=== PATIENT | male | born 1935 | race Caucasian/White ===

== ENCOUNTER 2017-12-16 06:17 | Outpatient (CLI) | payer OTHER | END 2017-12-16 06:22 | disposition home or self-care (01) | LOC: LAB 06:17 | DX: E11.65 Type 2 diabetes mellitus with hyperglycemia (principal); E78.2 Mixed hyperlipidemia; D64.89 Other specified anemias; D68.8 Other specified coagulation defects ==

== ENCOUNTER 2018-01-17 07:06 | Outpatient (CLI) | payer OTHER | END 2018-01-17 07:24 | disposition home or self-care (01) | LOC: SONOGRAMA 07:06 | DX: N40.0 Benign prostatic hyperplasia without lower urinary tract symptoms (principal) ==

== ENCOUNTER 2018-03-15 07:14 | Outpatient (CLI) | payer OTHER | END 2018-03-15 07:24 | disposition home or self-care (01) | LOC: RAD 07:14 | DX: Z85.21 Personal history of malignant neoplasm of larynx (principal) ==

== ENCOUNTER 2018-03-30 06:11 | Outpatient (CLI) | payer OTHER | END 2018-03-30 06:18 | disposition home or self-care (01) | LOC: LAB 06:11 | DX: Z12.11 Encounter for screening for malignant neoplasm of colon (principal); E11.65 Type 2 diabetes mellitus with hyperglycemia; E78.2 Mixed hyperlipidemia; E03.8 Other specified hypothyroidism ==

== ENCOUNTER → 2018-04-03 06:17 | Outpatient (CLI) | payer OTHER | END | disposition home or self-care (01) | LOC: LAB 06:17 | DX: Z12.11 Encounter for screening for malignant neoplasm of colon (principal); E11.65 Type 2 diabetes mellitus with hyperglycemia; E78.2 Mixed hyperlipidemia; E03.8 Other specified hypothyroidism ==

== ENCOUNTER 2018-06-15 06:13 | Outpatient (CLI) | payer OTHER | END 2018-06-15 06:22 | disposition home or self-care (01) | LOC: LAB 06:13 | DX: D68.8 Other specified coagulation defects (principal); E11.65 Type 2 diabetes mellitus with hyperglycemia; E78.2 Mixed hyperlipidemia; N39.0 Urinary tract infection, site not specified ==

== ENCOUNTER 2018-12-05 06:43 | Outpatient (CLI) | payer OTHER | END 2018-12-05 06:57 | disposition home or self-care (01) | LOC: LAB 06:43 | DX: I10 Essential (primary) hypertension (principal); E11.9 Type 2 diabetes mellitus without complications; E03.8 Other specified hypothyroidism; E78.2 Mixed hyperlipidemia; K92.1 Melena; D64.0 Hereditary sideroblastic anemia; N40.0 Benign prostatic hyperplasia without lower urinary tract symptoms ==

== ENCOUNTER 2019-04-03 07:20 | Outpatient (CLI) | payer OTHER | END 2019-04-03 07:23 | disposition home or self-care (01) | LOC: RAD 07:20 | DX: C32.9 Malignant neoplasm of larynx, unspecified (principal); Z85.21 Personal history of malignant neoplasm of larynx ==

== ENCOUNTER 2019-04-10 06:28 | Outpatient (CLI) | payer OTHER | END 2019-04-10 06:34 | disposition home or self-care (01) | LOC: LAB 06:28 | DX: E03.8 Other specified hypothyroidism (principal); E78.2 Mixed hyperlipidemia; E11.9 Type 2 diabetes mellitus without complications; I10 Essential (primary) hypertension ==

== ENCOUNTER 2019-06-07 09:05 | Outpatient (CLI) | payer OTHER | END 2019-06-07 09:13 | disposition home or self-care (01) | LOC: LAB 09:05 | DX: R07.89 Other chest pain (principal) ==

== ENCOUNTER → 2019-06-20 06:17 | Outpatient (CLI) | payer OTHER | END | disposition home or self-care (01) | LOC: LAB 06:17 | DX: N40.0 Benign prostatic hyperplasia without lower urinary tract symptoms (principal) ==

== ENCOUNTER 2019-07-31 06:09 | Outpatient (CLI) | payer OTHER | END 2019-07-31 15:42 | disposition home or self-care (01) | LOC: LAB 06:09 | DX: I10 Essential (primary) hypertension (principal); E11.9 Type 2 diabetes mellitus without complications; E03.8 Other specified hypothyroidism; E78.2 Mixed hyperlipidemia ==

== ENCOUNTER 2019-12-13 06:17 | Outpatient (CLI) | payer OTHER | END 2019-12-13 06:23 | disposition home or self-care (01) | LOC: LAB 06:17 | DX: E11.9 Type 2 diabetes mellitus without complications (principal); E03.8 Other specified hypothyroidism; E78.2 Mixed hyperlipidemia; N40.0 Benign prostatic hyperplasia without lower urinary tract symptoms; Z12.11 Encounter for screening for malignant neoplasm of colon; I10 Essential (primary) hypertension ==

== ENCOUNTER → 2020-05-16 07:18 | Outpatient (CLI) | payer OTHER | END | disposition home or self-care (01) | LOC: LAB 07:18 | PROVIDERS: ATTEND Internal Medicine Cardiovascular Disease | DX: E11.9 Type 2 diabetes mellitus without complications (principal); I10 Essential (primary) hypertension; E03.8 Other specified hypothyroidism; E78.2 Mixed hyperlipidemia ==

== ENCOUNTER 2020-06-24 06:21 | Outpatient (CLI) | payer OTHER | END 2020-06-24 06:35 | disposition home or self-care (01) | LOC: LAB 06:21 | PROVIDERS: ATTEND Urology | DX: N40.0 Benign prostatic hyperplasia without lower urinary tract symptoms (principal) ==

== ENCOUNTER 2020-07-15 07:11 | Outpatient (CLI) | payer OTHER | END 2020-07-15 07:12 | disposition home or self-care (01) | LOC: RAD 07:11 | DX: I15.8 Other secondary hypertension (principal); I10 Essential (primary) hypertension ==

== ENCOUNTER 2020-08-21 06:47 | Outpatient (CLI) | payer OTHER | END 2020-08-21 06:54 | disposition home or self-care (01) | LOC: LAB 06:47 | PROVIDERS: ATTEND Internal Medicine Cardiovascular Disease | DX: I10 Essential (primary) hypertension (principal); E11.9 Type 2 diabetes mellitus without complications; E03.8 Other specified hypothyroidism; E78.2 Mixed hyperlipidemia ==

== ENCOUNTER → 2020-09-19 06:15 | Outpatient (CLI) | payer OTHER | END | disposition home or self-care (01) | LOC: LAB 06:15 → RAD 06:15 | PROVIDERS: ATTEND Internal Medicine Cardiovascular Disease | DX: M43.12 Spondylolisthesis, cervical region (principal); M12.88 Other specific arthropathies, not elsewhere classified, other specified site ==

== ENCOUNTER 2020-12-16 06:28 | Outpatient (CLI) | payer OTHER | END 2020-12-16 06:34 | disposition home or self-care (01) | LOC: LAB 06:28 | PROVIDERS: ATTEND Orthopaedic Surgery | DX: E56.1 Deficiency of vitamin K (principal); E21.2 Other hyperparathyroidism; E55.9 Vitamin D deficiency, unspecified; M85.88 Other specified disorders of bone density and structure, other site; E88.89 Other specified metabolic disorders; M81.8 Other osteoporosis without current pathological fracture ==

== ENCOUNTER 2020-12-25 08:02 | Outpatient (CLI) | payer OTHER | END 2020-12-25 08:20 | disposition home or self-care (01) | LOC: NUCLEAR 08:02 | PROVIDERS: ATTEND Orthopaedic Surgery | DX: M81.0 Age-related osteoporosis without current pathological fracture (principal) ==

== ENCOUNTER 2021-01-07 06:15 | Outpatient (CLI) | payer OTHER | END 2021-01-07 06:22 | disposition home or self-care (01) | LOC: LAB 06:15 | PROVIDERS: ATTEND Internal Medicine Cardiovascular Disease | DX: E78.2 Mixed hyperlipidemia (principal); Z12.11 Encounter for screening for malignant neoplasm of colon; N40.0 Benign prostatic hyperplasia without lower urinary tract symptoms; E03.8 Other specified hypothyroidism; E11.9 Type 2 diabetes mellitus without complications; I10 Essential (primary) hypertension; E56.1 Deficiency of vitamin K; E83.42 Hypomagnesemia ==

== ENCOUNTER 2021-06-03 06:08 | Outpatient (CLI) | payer OTHER | END 2021-06-03 06:51 | disposition home or self-care (01) | LOC: LAB 06:08 | PROVIDERS: ATTEND Internal Medicine Cardiovascular Disease | DX: I10 Essential (primary) hypertension (principal); E11.9 Type 2 diabetes mellitus without complications; E03.8 Other specified hypothyroidism; E78.2 Mixed hyperlipidemia ==

== ENCOUNTER 2021-07-09 08:00 | Outpatient (CLI) | payer OTHER | END 2021-07-09 08:30 | disposition home or self-care (01) | LOC: PPH VACUNA 08:00 | DX: Z23 Encounter for immunization (principal) ==

== ENCOUNTER → 2021-09-21 06:24 | Outpatient (CLI) | payer OTHER | END | disposition home or self-care (01) | LOC: LAB 06:24 | PROVIDERS: ATTEND Internal Medicine Cardiovascular Disease | DX: E03.8 Other specified hypothyroidism (principal); I10 Essential (primary) hypertension; E11.9 Type 2 diabetes mellitus without complications; E78.2 Mixed hyperlipidemia ==

== ENCOUNTER 2022-01-22 06:14 | Outpatient (CLI) | payer OTHER | END 2022-01-22 06:16 | disposition home or self-care (01) | LOC: LAB 06:14 | PROVIDERS: ATTEND Ophthalmology | DX: E11.39 Type 2 diabetes mellitus with other diabetic ophthalmic complication (principal); I15.8 Other secondary hypertension; D68.32 Hemorrhagic disorder due to extrinsic circulating anticoagulants; D69.9 Hemorrhagic condition, unspecified; I10 Essential (primary) hypertension ==

== ENCOUNTER 2022-01-26 08:24 | Outpatient (CLI) | payer OTHER | END 2022-01-26 09:37 | disposition home or self-care (01) | LOC: EKG 08:24 | PROVIDERS: ATTEND Internal Medicine Cardiovascular Disease | DX: I10 Essential (primary) hypertension (principal) ==

== ENCOUNTER 2022-02-25 08:00 | Outpatient (CLI) | payer OTHER | END 2022-02-25 08:30 | disposition home or self-care (01) | LOC: PPH VACUNA 08:00 | PROVIDERS: ATTEND Emergency Medicine Pediatric Emergency Medicine | DX: Z23 Encounter for immunization (principal) ==

== ENCOUNTER 2022-03-11 06:04 | Outpatient (CLI) | payer OTHER | END 2022-03-11 06:05 | disposition home or self-care (01) | LOC: LAB 06:04 | PROVIDERS: ATTEND Internal Medicine Cardiovascular Disease | DX: E03.9 Hypothyroidism, unspecified (principal); I10 Essential (primary) hypertension; E11.9 Type 2 diabetes mellitus without complications; E78.2 Mixed hyperlipidemia; Z12.11 Encounter for screening for malignant neoplasm of colon; E55.9 Vitamin D deficiency, unspecified; N40.0 Benign prostatic hyperplasia without lower urinary tract symptoms ==

== ENCOUNTER 2022-03-12 06:08 | Outpatient (CLI) | payer OTHER | END 2022-03-12 06:12 | disposition home or self-care (01) | LOC: LAB 06:08 | PROVIDERS: ATTEND Internal Medicine Cardiovascular Disease | DX: E03.9 Hypothyroidism, unspecified (principal); I11.9 Hypertensive heart disease without heart failure; E78.2 Mixed hyperlipidemia; Z12.11 Encounter for screening for malignant neoplasm of colon; E55.9 Vitamin D deficiency, unspecified; N40.0 Benign prostatic hyperplasia without lower urinary tract symptoms ==

== ENCOUNTER 2022-04-20 06:34 | Outpatient (CLI) | payer OTHER | END 2022-04-20 06:40 | disposition home or self-care (01) | LOC: LAB 06:34 | PROVIDERS: ATTEND Urology | DX: N40.1 Benign prostatic hyperplasia with lower urinary tract symptoms (principal) ==

== ENCOUNTER 2022-07-14 06:07 | Outpatient (CLI) | payer OTHER | END 2022-07-14 06:08 | disposition home or self-care (01) | LOC: LAB 06:07 | PROVIDERS: ATTEND Internal Medicine Cardiovascular Disease | DX: E11.9 Type 2 diabetes mellitus without complications (principal); E78.2 Mixed hyperlipidemia; I10 Essential (primary) hypertension ==

== ENCOUNTER 2022-12-13 06:40 | Outpatient (CLI) | payer OTHER | END 2022-12-13 06:58 | disposition home or self-care (01) | LOC: LAB 06:40 | PROVIDERS: ATTEND Internal Medicine Cardiovascular Disease | DX: I10 Essential (primary) hypertension (principal); E11.9 Type 2 diabetes mellitus without complications; E03.9 Hypothyroidism, unspecified; E78.2 Mixed hyperlipidemia; Z12.11 Encounter for screening for malignant neoplasm of colon; N40.0 Benign prostatic hyperplasia without lower urinary tract symptoms ==

== ENCOUNTER → 2022-12-16 06:14 | Outpatient (CLI) | payer OTHER | END | disposition home or self-care (01) | LOC: LAB 06:14 | PROVIDERS: ATTEND Internal Medicine Cardiovascular Disease | DX: Z12.11 Encounter for screening for malignant neoplasm of colon (principal) ==

== ENCOUNTER 2023-05-19 06:06 | Outpatient (CLI) | payer OTHER | END 2023-05-19 06:07 | disposition home or self-care (01) | LOC: LAB 06:06 | PROVIDERS: ATTEND Internal Medicine Cardiovascular Disease | DX: E11.9 Type 2 diabetes mellitus without complications (principal); E78.2 Mixed hyperlipidemia; I10 Essential (primary) hypertension ==

== ENCOUNTER → 2023-07-05 06:07 | Outpatient (CLI) | payer OTHER | END | disposition home or self-care (01) | LOC: LAB 06:07 | PROVIDERS: ATTEND Urology | DX: N40.1 Benign prostatic hyperplasia with lower urinary tract symptoms (principal) ==

== ENCOUNTER 2023-10-18 06:09 | Outpatient (CLI) | payer OTHER ==
[2023-10-18 07:28] LABS: PH,URINE 5.5 (5.0-8.0); URINE APPEARANCE Clear; URINE BILIRRUBIN Negative (NEGATIVE); URINE BLOOD Negative; URINE COLOR Yellow; URINE GLUCOSE Negative (NEGATIVE); URINE LEUKOCYTE Small; URINE NITRATE Negative; URINE PROTEIN Negative (NEGATIVE); URINE UROBILINOGEN 0.2 E.U./dl
[2023-10-18 07:32] LABS: URINE BACTERIA 17.6 uL (0.0-1933); URINE EPITHELIAL CELLS 4.1 uL (0.0-38.8); URINE WBC 106.9 uL (0.0-23.2)
[2023-10-18 07:38] LABS: URINE RBC 1.5 uL (0.0-20.8)
[2023-10-18 07:38] LABS: HEMATOCRIT 38.5 % (39.0-48.0); HEMOGLOBIN 13.1 g/dL (13-16.00); MEAN CELL VOLUME 92.3 fL (80.0-100.00); MEAN CORPUSCULAR HEMOGLOBIN 31.4 pg (27.00-32.0); PLATELET COUNT 295 K/uL (150-450); RED BLOOD COUNT 4.17 M/uL (4.00-6.00); RED CELL DISTRIBUTION WIDTH 14.7 % (11.5-14.5)
[2023-10-18 08:20] LABS: CALCIUM 9.2 mg/dL (8.5-10.1); CHOL HDL RATIO 2.3 (0-5.0); CREATININE SERUM 0.96 mg/dL (0.70-1.30); GFR 73.75; POTASSIUM 3.84 mEq/L (3.5-5.1)
== END 2023-10-18 06:16 | disposition home or self-care (01) ==
LOC: LAB 06:09
PROVIDERS: ATTEND Internal Medicine Cardiovascular Disease
DX: E11.9 Type 2 diabetes mellitus without complications (principal); E78.2 Mixed hyperlipidemia

== ENCOUNTER 2024-03-05 06:09 | Outpatient (CLI) | payer OTHER ==
[2024-03-05 07:58] LABS: CALCIUM 9.5 mg/dL (8.5-10.1); CREATININE SERUM 0.85 mg/dL (0.70-1.30); GFR 84.87; POTASSIUM 4.24 mEq/L (3.5-5.1)
== END 2024-03-05 06:10 | disposition home or self-care (01) ==
LOC: LAB 06:09
PROVIDERS: ATTEND Surgery Surgical Oncology
DX: C32.9 Malignant neoplasm of larynx, unspecified (principal)

== ENCOUNTER → 2024-06-13 06:06 | Outpatient (CLI) | payer OTHER ==
[2024-06-13 06:56] LABS: HEMATOCRIT 39.4 % (39.0-48.0); HEMOGLOBIN 13.7 g/dL (13-16.00); MEAN CELL VOLUME 91.7 fL (80.0-100.00); MEAN CORPUSCULAR HGB CONC 34.8 g/dl (32.0-36.0); PLATELET COUNT 275 K/uL (150-450); RED CELL DISTRIBUTION WIDTH 14.6 % (11.5-14.5)
[2024-06-13 07:04] LABS: PH,URINE 6.5 (5.0-8.0); URINE APPEARANCE Clear; URINE BILIRRUBIN Negative (NEGATIVE); URINE BLOOD Negative; URINE COLOR Yellow; URINE GLUCOSE Negative (NEGATIVE); URINE LEUKOCYTE Trace; URINE NITRATE Negative; URINE PROTEIN Negative (NEGATIVE); URINE UROBILINOGEN 0.2 E.U./dl
[2024-06-13 07:07] LABS: URINE BACTERIA 18.8 uL (0.0-1933); URINE EPITHELIAL CELLS 5.8 uL (0.0-38.8); URINE RBC 6.1 uL (0.0-20.8); URINE WBC 47.5 uL (0.0-23.2)
[2024-06-13 07:49] LABS: BILIRUBIN TOTAL 0.87 mg/dL (0.3-1.2); CALCIUM 9.2 mg/dL (8.5-10.1); CHOL HDL RATIO 2.7 (0-5.0); CREATININE SERUM 0.91 mg/dL (0.70-1.30); GFR 78.45; GLOBULINA 3.5 G/DL (2.4-3.5); POTASSIUM 4.23 mEq/L (3.5-5.1); T4 TOTAL 8.39 UG/DL (4.5-12.1); TOTAL PROTEIN 7.5 gm/dL (6.4-8.2); TSH 2.01 uIU/mL (0.358-3.74)
[2024-06-13 07:51] LABS: PROSTATIC SPECIFIC ANTIGEN 2.32 NG/ML (0.010-4.00)
[2024-06-13 11:52] LABS: T3 TOTAL 0.834 ng/ml (0.846-2.02); VITAMIN D3 25 HYDROXY 24.88 ng/ml (30-120)
[2024-06-15 09:46] LABS: ob NEGATIVE (NEGATIVE)
== END | disposition home or self-care (01) ==
LOC: LAB 06:06
PROVIDERS: ATTEND Internal Medicine Cardiovascular Disease
DX: E78.2 Mixed hyperlipidemia (principal); E11.9 Type 2 diabetes mellitus without complications; E55.9 Vitamin D deficiency, unspecified; I10 Essential (primary) hypertension; N40.0 Benign prostatic hyperplasia without lower urinary tract symptoms; Z12.11 Encounter for screening for malignant neoplasm of colon; D64.0 Hereditary sideroblastic anemia

== ENCOUNTER 2024-07-11 06:21 | Outpatient (CLI) | payer OTHER ==
[2024-07-11 07:46] LABS: URINE BACTERIA 7.5 uL (0.0-1933); URINE EPITHELIAL CELLS 3.2 uL (0.0-38.8); URINE RBC 2.9 uL (0.0-20.8); URINE WBC 18.2 uL (0.0-23.2)
[2024-07-11 07:56] LABS: URINE BILIRRUBIN NEGATIVE (NEGATIVE); URINE BLOOD TRACE; URINE GLUCOSE NEGATIVE (NEGATIVE); URINE KETONE NEGATIVE (NEGATIVE); URINE LEUKOCYTE NEGATIVE; URINE NITRATE NEGATIVE; URINE PROTEIN NEGATIVE (NEGATIVE); URINE UROBILINOGEN 0.2 E.U./dl
[2024-07-11 08:00] LABS: URINE APPEARANCE CLEAR; URINE COLOR YELLOW
[2024-07-11 08:01] LABS: URINE CAST 0.15 uL (0.0-1.40)
[2024-07-11 08:17] LABS: ALBUMIN 3.9 gm/dL (3.4-5.0); BILIRUBIN TOTAL 0.85 mg/dL (0.3-1.2); CALCIUM 9.4 mg/dL (8.5-10.1); CREATININE SERUM 0.81 mg/dL (0.70-1.30); GFR 89.72; GLOBULINA 3.3 G/DL (2.4-3.5); POTASSIUM 3.86 mEq/L (3.5-5.1); TOTAL PROTEIN 7.2 gm/dL (6.4-8.2)
[2024-07-11 08:22] LABS: PROSTATIC SPECIFIC ANTIGEN 4.13 NG/ML (0.010-4.00)
== END 2024-07-11 06:25 | disposition home or self-care (01) ==
LOC: LAB 06:21
PROVIDERS: ATTEND Urology
DX: N40.1 Benign prostatic hyperplasia with lower urinary tract symptoms (principal)